=== PATIENT | male | born 1995 | race Caucasian/White ===

== ENCOUNTER → 2023-04-14 07:15 | Outpatient (CLI) | payer BC, SELFPAY ==
--- NOTE | 2023-04-14 07:22 | DI.US.S_ITS ---
PROCEDURE: US SCROTUM INDICATIONS: EPIDYDIMAL CYST R TESTICLE, HX OF L ORCHIECTOMY TECHNIQUE: Real-time scanning was performed of the scrotum and testicles, with image documentation. Color and pulse Doppler interrogation was performed of both testicles. COMPARISON: None. FINDINGS: Right: Testicle is normal in size at 5.7 x 2.5 x 3.6 cm, and homogenous in echotexture. Epididymis is normal in overall size and morphology. Mild hydrocele. No varicoceles. Overlying scrotal skin is normal in thickness. Tubular epididymal cyst is seen measuring 2.3 x 1.8 x 2.0 cm. Left: Status post orchiectomy with testicular prosthesis. Doppler: Color and pulse Doppler demonstrate normal arterial flow in the right testicle. IMPRESSION: 1. Right epididymal cyst measuring 2.3 x 1.8 x 2.0 cm with somewhat tubular configuration. 2. Mild right hydrocele. 3. Status post left orchiectomy with testicular prosthesis. Approved by: Dayron Valderrama M.D. on 04/14/2023 at 13:47
== END ==
PROVIDERS: PCP Family Medicine; Referring Provider Family Medicine; Visit Provider Family Medicine
DX: N50.3 Cyst of epididymis (principal); N43.3 Hydrocele, unspecified; Z90.79 Acquired absence of other genital organ(s)
CPT/HCPCS: 76870

== ENCOUNTER → 2023-08-11 08:18 | Outpatient (CLI) | payer BC, SELFPAY ==
[2023-08-11 08:53] LABS: Add Manual Diff / Slide Review NO; Basophils Absolute Auto 100 /uL (0-100); Basophils Percent Auto 0.8 % (0-2); Eosinophils Absolute Auto 100 /uL (0-450); Eosinophils Percent Auto 0.9 % (2-4); Hematocrit 46.9 % (41-53); Hemoglobin 16.3 g/dL (13.5-17.5); Lymphocytes Absolute Auto 2300 /uL (1100-4500); Lymphocytes Percent Auto 33.3 % (25-40); Mean Corpuscular HGB Conc 34.8 % (30-36); Mean Corpuscular Hemoglobin 31.3 PG (26-34); Mean Corpuscular Volume 90.1 fL (80-100); Monocytes Absolute Auto 700 /uL (0-900); Monocytes Percent Auto 9.7 % (3-14); Neutrophils Absolute Auto 3800 /uL (1500-7000); Neutrophils Percent Auto 55.3 % (50-75); Platelet Count 339 X10^3/uL (150-400); Red Blood Cell Count 5.21 X10^6/uL (4.5-5.9); Red Cell Distribution Width 13.2 % (11.6-14.8); White Blood Cell Count 6.9 X10^3/uL (4.5-11.0)
[2023-08-11 09:06] LABS: Alanine Aminotransferase 71 IU/L (<50); Albumin 4.7 g/dL (3.5-5.0); Albumin Globulin Ratio 1.6 (1.0-2.8); Alkaline Phosphatase 69 U/L (38-126); Aspartate Aminotransferase 46 IU/L (17-59); BUN Creatinine Ratio 21.3 (6-22); Bilirubin Total 0.9 mg/dL (0.2-1.3); Blood Urea Nitrogen 20 mg/dL (9-20); Calcium 9.6 mg/dL (8.4-10.2); Carbon Dioxide 27 mmol/L (22-32); Chloride 104 mmol/L (98-107); Cholesterol 232 mg/dL (140-199); Estimated Glomerular Filt Rate > 60 mL/min (>60); Globulin 2.9 g/dL (1.7-4.1); Glucose 91 mg/dL (70-100); HDL Cholesterol 62 mg/dL (40-60); HEMOLYSIS < 15 (0-50); LDL Cholesterol Calculated 156 mg/dL (<100); Potassium 4.8 mmol/L (3.4-5.1); Sodium 138 mmol/L (137-145); Total Protein 7.6 g/dL (6.3-8.2); Triglycerides 71 mg/dL (35-150)
[2023-08-11 09:37] LABS: TSH w/ Reflex to FT4 0.67 uIU/mL (0.47-4.68)
[2023-08-17 11:10] LABS: Percent Free Testosterone 2.94 % (1.50-4.20); Testosterone Free 17.46 ng/dL (5.00-21.00)
== END ==
PROVIDERS: PCP Family Medicine; Referring Provider Family Medicine; Visit Provider Family Medicine
DX: Z00.00 Encounter for general adult medical examination without abnormal findings (principal)
CPT/HCPCS: 36415; 80053; 80061; 84402; 84403; 84443; 85025